=== PATIENT | male | born 1955 | race Caucasian/White ===

== ENCOUNTER 2018-08-16 08:00 | Inpatient (IN) | payer MEDICAID ==
[2019-02-28] MEDS ORDERED: TRANEXAMIC ACID 3,000 MG in NS (SYRINGE) 50 ML IRR ONE (06:00)
[2019-02-28] MEDS ORDERED: ROPIVACAINE 0.2% 80 MG, EPINEPHrine 0.2 MG, KETOROLAC TROMETHAMINE 30 MG in SYRINGE 0 ML IU ONE (06:00)
--- NOTE | 2019-02-28 06:09 | PDHPUP ---
History & Physical Update H&P update statement: This history and physical update is based on an assessment of the patient which was completed after admission or registration (within 24 hours), but prior to the surgery/procedure. H&P update: H&P reviewed & patient examined, no change in patient's condition since H&P completed
[2019-02-28] MEDS ORDERED: TRANEXAMIC ACID 3,000 MG/50 ML BAG IRR ONE (07:33)
[2019-02-28] MEDS ORDERED: ceFAZolin 2 GM/DEXTROSE 100 ML IV ONE (08:42)
[2019-02-28] MEDS ORDERED: DEXAMETHASONE 4 MG/ML VIAL IVP ONE (08:42)
[2019-02-28] MEDS ORDERED: ACETAMINOPHEN 325 MG TAB PO ONE (08:42)
[2019-02-28] MEDS ORDERED: FAMOTIDINE 20 MG TAB PO ONE (08:42)
[2019-02-28] MEDS ORDERED: LIDOCAINE 1% 2 ML INJ ID PRN (08:43)
[2019-02-28] MEDS ORDERED: LR 1,000 ML IV ONE (08:43)
[2019-02-28] MEDS ORDERED: MIDAZOLAM 2 MG/2 ML VIAL IVP ONE (09:36)
--- NOTE | 2019-02-28 09:40 | PDANEPAE ---
ANE History of Present Illness 63 year old for R KELSEA ANE Past Medical History - Cardiovascular History Hx Hypertension: Yes Hx Arrhythmias: Yes Hx Chest Pain: No Hx Coronary Artery / Peripheral Vascular Disease: No Hx CHF / Valvular Disease: No Hx Palpitations: No Cardiovascular History Comment: hypercholesteremia - Pulmonary History Hx COPD: No Hx Asthma/Reactive Airway Disease: No Hx Recent Upper Respiratory Infection: No Hx Oxygen in Use at Home: No Hx Sleep Apnea: No Sleep Apnea Screening Result - Last Documented: Positive Pulmonary History Comment: LUIS triggers. pneumonia - Neurologic History Hx Cerebrovascular Accident: No Hx Seizures: No Hx Dementia: No Neurologic History Comment: hx of concussions - Endocrine History Hx Diabetes: No - Renal History Hx Renal Disorders: No Renal History Comment: BPH - Liver History Hx Hepatic Disorders: No - Neurological & Psychiatric Hx Hx Neurological and Psychiatric Disorders: Yes Neurological / Psychiatric History Comment: PTSD after last concussion in 2012 - Cancer History Hx Cancer: Yes Cancer History Comment: basal cell CA ear - Congenital Disorder History Hx Congenital Disorders: No - GI History Hx Gastrointestinal Disorders: No - Other Health History Other Health History: wears glasses. 3 dental implants. arthritis-neck - Chronic Pain History Chronic Pain: Yes (arthritis) - Surgical History Prior Surgeries: rotator cuff repair 2016. facial reconstruction 2013. L knee scope 80's, ANE Review of Systems Review of systems is: negative Review of Systems: - Exercise capacity METS (RN): 4 METS ANE Patient History - Allergies Allergies/Adverse Reactions: Sulfa (Sulfonamide Antibiotics) Allergy (Verified 07/28/18 10:15) Rash - Home Medications Home medications: home medication list seen and reviewed Home Medications: FLUoxetine [Prozac 20 MG (*)] 20 mg PO DAILY 07/27/18 [Last Taken 02/27/19 15:00 ] Gemfibrozil [Lopid 600 MG (*)] 600 mg PO DAILY 07/27/18 [Last Taken Unknown] Nadolol [Nadolol 40 mg] 40 mg PO BID 07/27/18 [Last Taken 02/27/19 22:00] Tamsulosin HCl [Flomax 0.4 MG (*)] 0.8 mg PO HS 07/27/18 [Last Taken 02/27/19 15 :00] Ezetimibe [Zetia 10 MG (*)] 10 mg PO DAILY 02/22/19 [Last Taken 02/27/19 15:00] Ibuprofen [Motrin (*)] 200 mg PO DAILY PRN 02/22/19 [Last Taken 02/21/19] - Smoking Hx Smoking Status: Never smoked - Alcohol Use Alcohol Use: Occasionally - Family Anes Hx Family Hx Anesthesia Complications: none ANE Labs/Vital Signs - Vital Signs Height: 182.88 cm Weight: 77.111 kg
[2019-02-28] MEDS ORDERED: BUPIVACAINE 0.5% 30 ML SDV ONE (09:53)
[2019-02-28] MEDS ORDERED: fentaNYL 100 MCG/2 ML INJ ONE (09:54)
[2019-02-28] MEDS ORDERED: PROPOFOL/EMULSION 500 MG/50 ML BOTTLE IV ONE (09:54)
[2019-02-28] MEDS ORDERED: ONDANSETRON 4 MG/2 ML VIAL IVP PRN ×2 (11:14→11:33)
[2019-02-28] MEDS ORDERED: PROMETHAZINE HCL 25 MG/ML INJ IVP PRN ×2 (11:14→11:33)
[2019-02-28] MEDS ORDERED: fentaNYL 100 MCG/2 ML INJ IVP PRN (11:14)
[2019-02-28] MEDS ORDERED: NALOXONE HCL 0.4 MG/ML INJ IVP PRN (11:14)
[2019-02-28] MEDS ORDERED: TEMAZEPAM 15 MG CAP PO PRN (11:33)
[2019-02-28] MEDS ORDERED: MAGNESIUM HYDROXIDE 30 ML UDCUP PO PRN (11:33)
[2019-02-28] MEDS ORDERED: PROMETHAZINE HCL 25 MG SUPPR PR PRN (11:33)
[2019-02-28] MEDS ORDERED: LACTULOSE 20 GM/30 ML UDCUP PO PRN (11:33)
[2019-02-28] MEDS ORDERED: diphenhydrAMINE 25 MG CAP PO PRN (11:33)
[2019-02-28] MEDS ORDERED: ONDANSETRON DISINTEGRATING 4 MG TAB PO PRN (11:33)
[2019-02-28] MEDS ORDERED: DIPHENOXYLATE/ATROPINE LOMOTIL 1 TAB PO PRN (11:33)
[2019-02-28] MEDS ORDERED: METOCLOPRAMIDE 10 MG/2 ML VIAL IVP PRN (11:33)
[2019-02-28] MEDS ORDERED: POLYETHYLENE GLYCOL 3350 17 GM PKT PO PRN (11:33)
[2019-02-28] MEDS ORDERED: BISACODYL 10 MG SUPP PR PRN (11:33)
--- NOTE | 2019-02-28 11:33 | POSTOPPROG ---
Post Op Note Date of Operation: 02/28/19 Surgeon: Paul Mathews Customer Leader: Toya Henson PAC Anesthesiologist: Dr. De Luna Warm Anesthesia: Spinal Pre-op Diagnosis: right hip OA Post-op Diagnosis: same Indication: right hip pain Procedure: RTHA Findings: severe OA of right hip Inf/Abcess present in the surg proc area at time of surgery?: No EBL: 50-100
--- NOTE | 2019-02-28 11:41 | POSTANESTH ---
Post Anesthetic Evaluation Cardiovascular Status: Normal, Stable Respiratory Status: Normal, Stable Level of Consciousness/Mental Status: Can Participate in Eval Pain Control: Adequate, Prn Tx Ordered Nausea/Vomiting Control: Adequate, Prn Tx Ordered Complications Possibly Related to Anesthesia: None Noted
[2019-02-28] MEDS ORDERED: LR 1,000 ML IV SCH (12:00)
[2019-02-28] MEDS: oxyCODONE IR 5 MG TAB PO PRN ×3 (13:27→22:08)
[2019-02-28] MEDS: CYCLOBENZAPRINE 10 MG TAB PO PRN ×2 (13:28→23:42)
--- NOTE | 2019-02-28 15:11 | SOAPPROG ---
SOAP Progress Note Assessment/Plan: Assessment: s/p right KELSEA anterior approach - POD 0 - performed by Dr. Mathews Doing well Plan: Begin d/c planning - likely home tomorrow. His daughter will help care for him post-op, but she is wondering if home health would be beneficial since she has to work Continue VTE ppx- aspirin 81 mg BID, NURIS hose, SCDs Continue PT efforts - WBAT with assistance initially, ROM as tolerated, follow anterior total hip precautions Continue oral pain medication Subjective: Patient states he is doing well, the right leg is still a bit numb secondary to the spinal anesthesia. He is hoping to go home tomorrow. His daughter states she will be able to help care for him at times, but she does work and is wondering if home health would be beneficial. He denies SOB, CP, fever, chills. Objective: Vital Signs Temp Pulse Resp BP Pulse Ox 36.4 C 58 L 12 147/88 H 94 02/28/19 14:14 02/28/19 14:14 02/28/19 14:14 02/28/19 14:14 02/28/19 14:14 02/27/19 02/28/19 03/01/19 05:59 05:59 05:59 Intake Total 1025 Output Total 100 Balance 925 Patient resting in bed, his daughter is present in the room. RLE: Wound dressings on the anterior hip are clean, dry and intact. Mild edema about the anterior hip. No erythema, ecchymosis. NURIS hose and SCDs are in place. Lower leg compartments are soft and nontender. Negative Homans sign bilaterally. He can actively DF and PF his right foot and great toe against resistance. Grossly NVI distally. ICD10 Worksheet Patient Problems: Problems Problem Status Onset Osteoarthritis of right hip Acute - ICD10 Problem Qualifiers (1) Osteoarthritis of right hip Qualifiers: Osteoarthritis type: primary Qualified Code(s): M16.11 - Unilateral primary osteoarthritis, right hip
[2019-02-28] MEDS: ACETAMINOPHEN 325 MG TAB PO SCH ×2 (18:03→23:40)
[2019-02-28] MEDS: ceFAZolin 2 GM/DEXTROSE 100 ML IV SCH (18:04)
[2019-02-28] MEDS: NADOLOL 20 MG TAB PO SCH (20:43)
[2019-02-28] MEDS: SENNOSIDES/DOCUSATE SODIUM TAB PO SCH (20:44)
[2019-02-28] MEDS: ASPIRIN 81 MG CHEWABLE TAB PO SCH (20:44)
[2019-02-28] MEDS: FAMOTIDINE 20 MG TAB PO SCH (20:44)
[2019-02-28] MEDS ORDERED: TAMSULOSIN HCL 0.4 MG CAP PO SCH (21:00)
[2019-03-01] MEDS: oxyCODONE IR 5 MG TAB PO PRN ×2 (02:08→06:11)
[2019-03-01] MEDS: ceFAZolin 2 GM/DEXTROSE 100 ML IV SCH (02:12)
[2019-03-01] MEDS: ACETAMINOPHEN 325 MG TAB PO SCH ×2 (05:02→10:43)
--- NOTE | 2019-03-01 08:22 | GOP ---
[f rep st] OPERATIVE REPORT DATE OF OPERATION: 02/28/2019 SURGEON: Rhoda Mathews MD WAN SUPPORT SPECIALIST: Anne Henson P.A.-c. ANESTHESIA: Spinal. PREOPERATIVE DIAGNOSIS: Right hip osteoarthritis. POSTOPERATIVE DIAGNOSIS: Right hip osteoarthritis. PROCEDURE PERFORMED: Right total hip arthroplasty with x-ray. FINDINGS: ESTIMATED BLOOD LOSS: 200 cc. INDICATIONS: The patient has progressively worsening arthritis of the hip which has failed medical m anagement. The patient understands the treatment options including continued non-operative care and has selected surgical intervention. The patient has decided to undergo total hip arthroplasty via th e direct anterior approach, understanding the risks of the procedure including, but not limited to, n eurovascular injury, infection, persistent pain, component wear and loosening, deep venous thrombosis , pulmonary embolism, limb length inequality, hip instability (including dislocation), and intra-oper ative fractures. DESCRIPTION OF PROCEDURE: After proper identification of the patient including verification and dianne ing the surgical site, the patient was brought to the operating room and placed in the supine positio n. All bony prominences were well padded. Anesthesia was induced without complication and intraveno us prophylactic antibiotics were administered prior to skin incision. The operative leg was placed in the Trumpf Arch table extension and the well leg in a Yellofin leg ho lder. The patient was prepped and draped in the usual sterile fashion. The C-arm was draped for int ra-operative fluoroscopy to check acetabular position, femoral component position including leg lengt h and femoral offset. Attention was then drawn to surgical exposure of the hip. An incision was made with a #10 Bard Jay r blade starting 3 cm lateral and 3 cm distal to the anterior superior iliac spine measuring 8-10 cm and coursing distally toward the greater trochanter. The skin and subcutaneous tissues were divided sharply down to the fascia subha. The fascia subha was incised in line with the skin incision exposing the underlying tensor fascia subha muscle. The muscle was bluntly elevated from the fascia and the f irst extracapsular Cobra retractor was placed laterally at the junction of the superior femoral neck and greater trochanter. The lateral femoral circumflex vessels were identified, cauterized, and divi ded with the Aquamantys bipolar cautery. The deep investing fascia of the TFL was divided to allow p giovani mobilization of the muscle preventing damage during the retraction. The reflected head of the rectus femoris muscle was elevated off the anterior hip capsule and a medial Cobra retractor was plac ed just proximal to the lesser trochanter. The anterior capsulotomy was made sharply from the superolateral acetabulum to the saddle junction of the superior femoral neck and greater trochanter, then coursing inferomedial towards the lesser troc hanter. The retractors were then placed in the intracapsular position for femoral neck osteotomy. C orresponding to pre-operative templating, the osteotomy was made with the oscillating saw carefully p rotecting the greater trochanter and soft tissues. The femoral head was removed from the acetabulum with a corkscrew and confirmed to be severely arthritic with exposed bone, deformity and osteophytes. Similar findings were confirmed in the acetabulum. The Arch table extension was then placed in 40 degrees external rotation. Attention was then drawn to the acetabular preparation. After placement of the anterior and posterio r Cobra retractors outside the labrum and intracapsular, the circumferential labrum was removed sharp ly. The foveal contents were then removed and hemostasis obtained with cautery. The first reamer selected was sized using the removed femoral head. Reaming began with medialization and then commenced in 2 mm increments at 45 degrees of abduction and 15 degrees of anteversion using fluoroscopic navigation. Reaming ceased 1 mm less than the definitive acetabular component and adrian esponded to the pre-operative templating. The final acetabular component was inserted using fluorosc opy to achieve proper orientation yielding excellent purchase and stability in the acetabulum. The f inal acetabular liner was then placed and its seating confirmed. Attention was then turned to the femur. The Arch table extension was placed in extension and adducti on, delivering the osteotomized femoral neck into the wound. A 2-pronged femoral elevator was placed at the calcar and another at the tip of the greater trochanter. The posterolateral capsule was rele ased with cautery allowing mobilization of the femur lateral and anterior for preparation. The exter nal rotators were visualized and preserved. A curette and rongeur were used to open the starting poi nt for broaching. Serial broaching started with the #0 broach and ended with the broach that exhibit ed excellent fit in the proximal femur. A change in pitch during mallet strikes was accompanied by t he inability to advance the broach any further. The trial reduction was performed and fluoroscopic n avigation was utilized to check limb length. Adjustments were made to equalize limb length according ly. After the final trials were accepted they were removed and the wound was copiously lavaged. The femo ral component was seated to the same depth as the final broach and the femoral head was impacted onto the clean trunnion. The hip was then reduced for the final time and once more fluoroscopy was used to check that limb length equality was achieved. The wound was irrigated and closed in layers, the fascia subha with 2-0 Quill, the subcutaneous tissue with 2-0 Quill, and the skin with Dermabond. Sterile dressings were applied. Final sharps and spon ge counts were accurate. The patient was then transferred to a hospital bed and [facility] in stable condition. IMPLANTS: Accolade II size 4 at 127. Acetabular component Trident 2, 56 mm. Liner is a Trident X3, 36 mm. Head is a Biolox delta 36 mm -2.5. /[id number]/MODL
--- NOTE | 2019-03-01 08:49 | SOAPPROG ---
SOAP Progress Note Assessment/Plan: Assessment: s/p right KELSEA anterior approach - POD 1 - performed by Dr. Mathews Anemia - expected initially post-op, asymptomatic, continue to monitor Plan: Continue d/c planning - patient doing better than expected, would like to go home today. His daughter will help care for him post-op Continue VTE ppx- aspirin 81 mg BID x 4 weeks, NURIS hose x 2 weeks Continue PT efforts - WBAT with walker as needed, ROM as tolerated, follow anterior total hip precautions Continue oral pain medication Dressing had some saturated blood - Mepilex was changed; I will check his dressing prior to him leaving Subjective: Patient states he is doing well, pain is controlled. He did notice some blood on his dressing during the night. Otherwise no major complaints or concerns. He denies SOB, CP, fever, chills, nausea, numbness, tingling. Objective: Vital Signs Temp Pulse Resp BP Pulse Ox 36.5 C 65 16 115/69 94 03/01/19 07:57 03/01/19 07:57 03/01/19 07:57 03/01/19 07:57 03/01/19 07:57 Laboratory Results 03/01/19 04:59 02/28/19 03/01/19 03/02/19 05:59 05:59 05:59 Intake Total 2175 615 Output Total 1550 200 Balance 625 415 Patient resting in bed, no acute distress. RLE: Wound dressing has some saturated blood. Mepilex was removed. The incision is well approximated. A new Mepilex dressing was applied. Mild edema diffusely about the anterolateral right hip. Lower leg compartments are soft and nontender. He can actively DF and PF his right foot and great toe against resistance. Grossly NVI distally. ICD10 Worksheet Patient Problems: Problems Problem Status Onset Osteoarthritis of right hip Acute - ICD10 Problem Qualifiers (1) Osteoarthritis of right hip Qualifiers: Osteoarthritis type: primary Qualified Code(s): M16.11 - Unilateral primary osteoarthritis, right hip
--- NOTE | 2019-03-01 08:52 | PDDCSUM ---
Discharge Summary Discharge Summary: ADMISSION DIAGNOSIS: Right hip severe degenerative arthritis DISCHARGE DIAGNOSIS: Right hip severe degenerative arthritis OPERATION PERFORMED: February 28, 2019, Right total hip arthroplasty, anterior approach POSTOPERATIVE COMPLICATIONS: None CONDITION ON DISCHARGE: Improved HPI: The patient is a 63 year old male who has end-stage arthritis of his right hip. Clinical and radiographic features are consistent with this. Patient has failed attempts at conservative management, therefore, recommended operative right total hip replacement. DESCRIPTION OF HOSPITAL COURSE: The patient was admitted to the hospital on the morning of surgery and underwent a right total hip arthroplasty, anterior approach. Postoperatively, patient was treated with multimodal DVT prophylaxis, including aspirin 81 mg twice per day, SCDs and NURIS hose. Patient was seen by PT and made good progress with ambulation and stairs. On the first post- operative day the patients H&H was 13.1/38.0. Patient was able to void spontaneously. Patient has done better than expected and would like to be discharged home today. At the time of discharge, patient was afebrile, wound dressings had some saturated blood. Mepilex was removed. The incision was well approximated. New Mepilex dressing was applied. Patient is walking with a walker. DISPOSITION: The patient is discharged home and may have outpatient PT in approximately 3 weeks. Patient may progress to full weightbearing on the right lower extremity as tolerated. NURIS stockings for 2 weeks during the daytime. Aspirin 81 mg twice per day for 4 weeks. Patient has prescriptions for Celebrex , [place] 5/325 mg, flexeril for pain control and muscle spasms. The patient will be seen by Dr. Blakely office in approximately 3 weeks. If there are any problems, patient is to call Dr. Blakely office.
[2019-03-01] MEDS ORDERED: FLUoxetine 20 MG CAP PO SCH (09:00)
[2019-03-01] MEDS ORDERED: GEMFIBROZIL 600 MG TAB PO SCH (09:00)
[2019-03-01] MEDS ORDERED: EZETIMIBE 10 MG TAB PO SCH (09:00)
[2019-03-01] MEDS: NADOLOL 20 MG TAB PO SCH (09:05)
[2019-03-01] MEDS: FAMOTIDINE 20 MG TAB PO SCH (09:05)
[2019-03-01] MEDS: SENNOSIDES/DOCUSATE SODIUM TAB PO SCH (09:05)
[2019-03-01] MEDS: ASPIRIN 81 MG CHEWABLE TAB PO SCH (09:06)
--- NOTE | 2019-03-01 12:10 | PDMN ---
Medical Necessity Medical necessity: [facility] IP only surgery; cpt [id number] R KELSEA
[2019-03-01 12:34] VITALS: BP 124/69
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
[2019-03-02] MEDS ORDERED: HYDROCODONE/APAP 5/325 TAB PO PRN (09:01)
== END 2019-03-01 13:19 | disposition home or self-care (01) | DRG 301 ==
LOC: F3N 02-28 08:28
PROVIDERS: ADMIT Orthopaedic Surgery; ATTEND Orthopaedic Surgery
PROC: 0SR904Z Replacement of Right Hip Joint with Ceramic on Polyethylene Synthetic Substitute, Open Approach (ICD-10-PCS; principal; 2019-02-28 10:00)
DX: M16.11 Unilateral primary osteoarthritis, right hip (principal); I10 Essential (primary) hypertension
CPT/HCPCS: 97110-GP; 97116-GP; 97161-GP; J0171; J0690; J1100; J1885; J2250; J2704; J2795; J3010